=== PATIENT | female | born 1955 | race Caucasian/White ===

== ENCOUNTER 2023-09-30 21:08 | Observation (INO) ==
[2023-09-30] MEDS ORDERED: IOPAMIDOL 100 ML BOTTLE IV ONE (21:09)
[2023-09-30 22:09] LABS: Basophils # (Auto) 0.02 K/mcL (0.00-0.30); Basophils % (Auto) 0.1 % (0.0-2.0); Eosinophils # (Auto) 0.09 K/mcL (0.00-0.70); Eosinophils % (Auto) 0.6 % (0.0-7.0); Hematocrit 43.5 % (34.1-44.9); Lymphocytes % (Auto) 18.4 % (15.5-49.0); Mean Cell Volume 88.6 fL (80.0-100.0); Mean Corpuscular HGB Conc 34.5 g/dL (31.0-36.0); Mean Platelet Volume 9.6 fL (8.8-12.5); Monocytes # (Auto) 0.97 K/mcL (0.10-0.90); Monocytes % (Auto) 6.6 % (1.0-12.0); Neutrophils % (Auto) 74.2 % (38.0-78.0); Platelet Count 338 K/mcL (140-440); RBC 4.91 M/mcL (3.59-5.38); Red Cell Distribution Width 12.6 % (11.5-14.5); WBC 14.7 K/mcL (4.5-11.0)
[2023-09-30 22:26] LABS: HCG,Serum Negative
[2023-09-30 22:31] LABS: ALT/SGPT 33 U/L (<40); AST/SGOT 22 U/L (<32); Albumin 4.2 gm/dL (3.2-5.2); Albumin/Globulin Ratio 1.4 (1.0-2.3); Alkaline Phosphatase 105 U/L (39-117); Bilirubin,Total 0.2 mg/dL (0.1-1.0); Blood Urea Nitrogen 20 mg/dL (8-23); Calcium 9.8 mg/dL (8.6-10.4); Carbon Dioxide 21 mmol/L (22-30); Chloride 103 mmol/L (96-108); Globulin 2.9 gm/dL (2.2-3.7); Glomerular Filtration Rate 89; Glucose 117 mg/dL (70-105)
[2023-09-30] MEDS: 0.9 % SODIUM CHLORIDE 1,000 ML IV ONE (22:41)
[2023-09-30] MEDS: morphine 4 MG/ML VIAL IV ONE ×2 (22:41→23:48)
[2023-09-30] MEDS: ONDANSETRON 4 MG/2 ML VIAL IV ONE (22:41)
[2023-09-30] MEDS: FAMOTIDINE/PF 20 MG/2 ML VIAL IV ONE (23:38)
[2023-09-30] MEDS: MAG HYDROX/AL HYDROX/SIMETH 30 ML ORAL.SUSP PO ONE (23:38)
[2023-09-30] MEDS: PHENobarb/HYOSCY/ATROPINE/SCOP 1 DOSE BOTTLE PO ONE (23:48)
[2023-09-30] MEDS: HYDROmorphone 1 MG/ML SYRINGE IV ONE (23:48)
[2023-10-01] MEDS: ONDANSETRON 4 MG/2 ML VIAL IV ONE (00:23)
[2023-10-01 00:58] LABS: Appearance,Urine Clear (Clear); Bacteria,Urine 0 /hpf (0); Bilirubin,Urine Negative (Negative); Color,Urine Yellow; Culture Indicated,Urine No; Glucose,Urine (UA) Negative (Negative); Ketones,Urine Negative (Negative); Leukocyte Esterase,Urine Negative /uL (Negative); Nitrate,Urine Negative (Negative); Protein,Urine Negative (Negative); Specific Gravity,Urine 1.015 (1.000-1.035); Urine Blood Trace-intact ery/mcL (Negative); Urine RBC < 1 /hpf (0-3); Urine Squamous Epithelial Cell 0 /hpf (0-4); Urine WBC < 1 /hpf (0-4); Urobilinogen,Urine Normal
[2023-10-01] MEDS: PROMETHAZINE 50 MG/ML AMPUL IM ONE (01:05)
[2023-10-01] MEDS: 0.9 % SODIUM CHLORIDE 1,000 ML IV SCH ×2 (01:33→03:49)
[2023-10-01] MEDS: 0.9 % SODIUM CHLORIDE 1,000 ML IV ONE (01:45)
[2023-10-01 02:16] LABS: Partial Thromboplastin Time 26.7 sec (20.0-37.0)
[2023-10-01 02:17] LABS: INR 0.8 (0.9-1.1); Prothrombin Time 11.5 sec (11.9-14.5)
[2023-10-01] MEDS: LORazepam 2 MG/ML VIAL IV ONE (02:42)
[2023-10-01] MEDS: KETOROLAC 15 MG/ML VIAL IV ONE (02:42)
[2023-10-01] MEDS ORDERED: KETOROLAC 30 MG/ML VIAL IV PRN (02:49)
[2023-10-01] MEDS ORDERED: ONDANSETRON 4 MG/2 ML VIAL IV PRN (02:49)
[2023-10-01] MEDS ORDERED: morphine 4 MG/ML VIAL IV PRN (02:49)
[2023-10-01] MEDS: LACTATED RINGERS 1,000 ML IV SCH ×2 (03:51→05:51)
[2023-10-01] MEDS: 0.9 % SODIUM CHLORIDE 10 ML SYRINGE IV SCH (05:51)
[2023-10-01] MEDS: DOCUSATE SODIUM 100 MG CAPSULE PO SCH (09:13)
[2023-10-01] MEDS ORDERED: SENNOSIDES 1 TABLET PO SCH (21:00)
== END 2023-10-01 17:36 | disposition home or self-care (01) ==
LOC: MEDSUR 21:08 → ED 21:08 → MEDSUR 10-01 04:09
PROVIDERS: ADMIT Family Medicine Adult Medicine; ATTEND Family Medicine Adult Medicine